=== PATIENT | male | born 1955 | race Two or more races ===

== ENCOUNTER 2020-01-12 09:37 | Outpatient (CLI) | payer OTHER ==
[~2020-01-12] VITALS: Ht 165.1 cm; Wt 80.7 kg
[~2020-01-12 09:37] MED LIST: HYTRIN5 MG PO; KEFLEX500 MG ORAL; LANSOPRAZOLE30 MG ORAL; METFORMIN HCL500 M1 ORAL; PRAVASTATIN SOD20 M1 ORAL; PROSCAR5 MG ORAL
[2020-01-12 10:35] VITALS: BP 140/74
[2020-01-12] MEDS ORDERED: METFORMIN HCL500 M1 ORAL (15:09)
[2020-01-12] MEDS ORDERED: SIMVASTATIN40 MG ORAL (15:09)
[2020-01-12] MEDS ORDERED: JANUVIA50 MG ORAL (15:09)
--- NOTE | 2020-01-12 17:29 | Consultation ---
DATE OF CONSULTATION: 01/12/2020 CHIEF COMPLAINT: 1. Chronic GERD. 2. Screening colonoscopy. PAST MEDICAL HISTORY: 1. Diabetes. 2. Hypertension. 3. . 4. BPH. PAST SURGICAL HISTORY: Right hernia surgery, right eye surgery, prostate surgery. MEDICATIONS: He is taking the long list of medications. Please see the medication reconciliation list. FAMILY HISTORY: Noncontributory. SOCIAL HISTORY: The patient denies any tobacco, alcohol, or drug use. ALLERGIES: No known allergies. REVIEW OF SYSTEMS: Positive for GERD and constipation. PHYSICAL EXAMINATION: VITAL SIGNS: Temperature 97.7, blood pressure 140/74, pulse 77, respirations 20. HEENT: Normocephalic and atraumatic. Sclerae anicteric. NECK: Supple. No evidence of obvious lymphadenopathy. CARDIOVASCULAR: Regular rate and rhythm. Plus S1 and S2. LUNGS: Decreased breath sounds bilaterally based on the supine exam. ABDOMEN: Soft, nontender. No rebound. No guarding. No peritoneal sign. EXTREMITIES: No cyanosis. No clubbing. No edema. ASSESSMENT/PLAN: The patient is a 64-year-old male with chronic GERD for about a few years much response to PPI, also needs a screening colonoscopy. The patient needs to scheduled for endoscopy and colonoscopy. The procedure was explained to him. The risks and benefits of the procedure was explained to him. The prep was explained to him. The patient agreed. We will plan to do both when authorization is obtained. Paco Vazquez M.D. DR: Gonzalo JOB#: [id number] CC:
== END 2020-01-12 14:29 | disposition home or self-care (01) ==
LOC: PAN 09:37
DX: K21.9 Gastro-esophageal reflux disease without esophagitis (principal); K59.00 Constipation, unspecified; E11.9 Type 2 diabetes mellitus without complications; I10 Essential (primary) hypertension
CPT/HCPCS: G0463